=== PATIENT | male | born 1980 | race African-American/Black ===

== ENCOUNTER 2019-04-22 13:28 | Inpatient (IN) | payer OTHER ==
[2019-04-22 13:53] LABS: ADD MAN DIFF? NO
[2019-04-22 13:55] LABS: HEMOGLOBIN 13.3 g/dl (14.0-18.0); MEAN CORPUSCULAR HEMOGLOBIN 27.2 pg (29.0-33.0); MEAN CORPUSCULAR HGB CONC 32.4 g/dl (32.0-37.0); MEAN CORPUSCULAR VOLUME 83.8 fl (82.0-101.0); RED BLOOD COUNT 4.89 10^6/ul (4.70-6.10); RED CELL DISTRIBUTION WIDTH 13.5 % (11.5-14.5)
[2019-04-22 13:55] LABS: WHITE BLOOD COUNT 4.9 10^3/ul (4.8-10.8)
[2019-04-22 13:56] LABS: BASOPHILS % 0.4 % (0.0-2.0); EOSINOPHILS # 0.1 10^3/ul (0.0-0.5); EOSINOPHILS % 1.8 % (0.0-7.0); LYMPHOCYTES # 0.8 10^3/ul (0.8-2.9); LYMPHOCYTES % 16.8 % (15.0-51.0); MONOCYTE # 0.3 10^3/ul (0.3-0.9); MONOCYTES % 6.6 % (0.0-11.0); NEUTROPHIL # 3.6 10^3/ul (1.6-7.5); NEUTROPHILS % 74.2 % (39.0-77.0); PLATELET COUNT 238 10^3/UL (140-415)
[2019-04-22 14:13] LABS: ALANINE AMINOTRANSFERASE 23 IU/L (13-69); ALBUMIN 4.1 g/dl (3.3-4.9); ALBUMIN/GLOBULIN RATIO 1.28; ALKALINE PHOSPHATASE 69 IU/L (42-121); ANION GAP 8 (5-13); ASPARTATE AMINO TRANSFERASE 18 IU/L (15-46); BILIRUBIN,INDIRECT 0.4 mg/dl (0-1.1); BILIRUBIN,TOTAL 0.4 mg/dl (0.2-1.3); BLOOD UREA NITROGEN 11 mg/dl (7-20); CALCIUM 9.8 mg/dl (8.4-10.2); CARBON DIOXIDE 28 mmol/L (21-31); CHLORIDE 103 mmol/L (97-110); CREATININE 0.74 mg/dl (0.61-1.24); Estimated GFR > 60 mL/min (>60); GLUCOSE 108 mg/dl (70-220); LIPASE 54 U/L (23-300); POTASSIUM 4.1 mmol/L (3.5-5.1); SODIUM 139 mmol/L (135-144); TOTAL PROTEIN 7.3 g/dl (6.1-8.1)
[2019-04-22] MEDS: HALOPERIDOL 5 MG INJ IV (14:19)
[2019-04-22] MEDS: ONDANSETRON 4 MG INJ IV (14:22)
[2019-04-22] MEDS: SOD CHLORIDE 0.9% 1,000 ML IV ×2 (14:23→15:40)
[2019-04-22] MEDS: DICYCLOMINE 20 MG INJ IM (14:25)
[2019-04-22] MEDS: BELLADONNA/PHENOBARBITAL TAB PO (15:17)
[2019-04-22] MEDS: FAMOTIDINE 20 MG TAB PO (15:18)
[2019-04-22] MEDS: LIDOCAINE/MYLANTA 40 ML BTL PO (15:18)
[2019-04-22] MEDS: HYDROmorphONE 2 MG/ML SYG IV (15:39)
[2019-04-22] MEDS: LORAZEPAM 2 MG INJ IV (15:40)
[2019-04-22] MEDS: CAPSAICIN 0.025% 60 GM CR TOP (16:30)
[2019-04-22] MEDS ORDERED: ONDANSETRON 4 MG INJ IV (17:30)
[2019-04-22] MEDS ORDERED: ACETAMINOPHEN 325 MG TAB PO (17:30)
[2019-04-22] MEDS ORDERED: NACL 0.9% 3 ML SYG IV (17:30)
[2019-04-22 18:18] LABS: ETHANOL < 10.0 mg/dl (0-0)
[2019-04-23] MEDS: PANTOPRAZOLE (EC) 40 MG TAB PO (05:13)
[2019-04-23 06:07] LABS: ADD MAN DIFF? NO
[2019-04-23 06:17] LABS: WHITE BLOOD COUNT 5.4 10^3/ul (4.8-10.8)
[2019-04-23 06:17] LABS: BASOPHILS % 0.4 % (0.0-2.0); EOSINOPHILS # 0.1 10^3/ul (0.0-0.5); EOSINOPHILS % 1.5 % (0.0-7.0); HEMATOCRIT 38.5 % (42.0-52.0); HEMOGLOBIN 12.5 g/dl (14.0-18.0); LYMPHOCYTES # 1.2 10^3/ul (0.8-2.9); LYMPHOCYTES % 22.7 % (15.0-51.0); MEAN CORPUSCULAR HEMOGLOBIN 27.5 pg (29.0-33.0); MEAN CORPUSCULAR HGB CONC 32.5 g/dl (32.0-37.0); MEAN CORPUSCULAR VOLUME 84.6 fl (82.0-101.0); MEAN PLATELET VOLUME 10.6 fl (7.4-10.4); MONOCYTE # 0.6 10^3/ul (0.3-0.9); MONOCYTES % 11.6 % (0.0-11.0); NEUTROPHIL # 3.4 10^3/ul (1.6-7.5); NEUTROPHILS % 63.6 % (39.0-77.0); PLATELET COUNT 234 10^3/UL (140-415); RED BLOOD COUNT 4.55 10^6/ul (4.70-6.10); RED CELL DISTRIBUTION WIDTH 13.8 % (11.5-14.5)
[2019-04-23 06:40] LABS: ALANINE AMINOTRANSFERASE 22 IU/L (13-69); ALBUMIN 3.3 g/dl (3.3-4.9); ALBUMIN/GLOBULIN RATIO 1.22; ALKALINE PHOSPHATASE 59 IU/L (42-121); ANION GAP 5 (5-13); ASPARTATE AMINO TRANSFERASE 22 IU/L (15-46); BILIRUBIN,INDIRECT 0.7 mg/dl (0-1.1); BILIRUBIN,TOTAL 0.7 mg/dl (0.2-1.3); BLOOD UREA NITROGEN 12 mg/dl (7-20); CALCIUM 9.1 mg/dl (8.4-10.2); CARBON DIOXIDE 27 mmol/L (21-31); CHLORIDE 106 mmol/L (97-110); CREATININE 0.75 mg/dl (0.61-1.24); Estimated GFR > 60 mL/min (>60); GLUCOSE 90 mg/dl (70-220); MAGNESIUM 1.9 mg/dl (1.7-2.5); POTASSIUM 4.1 mmol/L (3.5-5.1); SODIUM 138 mmol/L (135-144)
[2019-04-23 07:02] LABS: THYROID STIMULATING HORMONE 0.516 MIU/L (0.465-4.680)
[2019-04-23 07:43] LABS: HEMOGLOBIN A1C 5.4 % (0-5.9)
[2019-04-23 11:06] LABS: AMPHETAMINE/METHAMPHETAMINE Negative (NEGATIVE); BARBITURATES Positive (NEGATIVE); BENZODIAZEPINES Negative (NEGATIVE); CANNABINOIDS Positive (NEGATIVE); COCAINE Positive (NEGATIVE); OPIATES Negative (NEGATIVE)
[2019-04-23] MEDS: LORAZEPAM 2 MG INJ IV (15:28)
[2019-04-23] MEDS: AL HYDROX/MG HYDROX/SIMETH 30 ML CUP PO (15:29)
[2019-04-23 20:02] LABS: AMPHETAMINE/METHAMPHETAMINE Negative (NEGATIVE); BARBITURATES Positive (NEGATIVE); BENZODIAZEPINES Negative (NEGATIVE); CANNABINOIDS Positive (NEGATIVE); COCAINE Positive (NEGATIVE); OPIATES Negative (NEGATIVE)
[2019-04-24] MEDS: PANTOPRAZOLE (EC) 40 MG TAB PO (06:14)
[2019-04-24] MEDS: AL HYDROX/MG HYDROX/SIMETH 30 ML CUP PO ×2 (10:47→17:46)
[2019-04-25] MEDS: PANTOPRAZOLE (EC) 40 MG TAB PO (06:05)
[2019-04-25] MEDS: ONDANSETRON 4 MG INJ IV ×2 (08:53→14:58)
[2019-04-25] MEDS: ACETAMINOPHEN 325 MG TAB PO ×2 (08:55→15:17)
[2019-04-25] MEDS: SERTRALINE 50 MG TAB PO (10:10)
[2019-04-25] MEDS: DOCUSATE SODIUM 100 MG CAP PO ×2 (12:16→20:17)
[2019-04-25] MEDS: LORAZEPAM 2 MG INJ IV (12:16)
[2019-04-25] MEDS ORDERED: ONDANSETRON 4 MG INJ IV (19:30)
[2019-04-25] MEDS: KETOROLAC 30 MG INJ IV (20:16)
[2019-04-25] MEDS: AL HYDROX/MG HYDROX/SIMETH 30 ML CUP PO (20:17)
[2019-04-25] MEDS: ONDANSETRON INJ 8 MG in SOD CHLORIDE 0.9% 50 ML IV (20:47)
[2019-04-25] MEDS: HYDROCODONE/APAP (5/325) TAB PO (21:44)
[2019-04-26] MEDS: PANTOPRAZOLE (EC) 40 MG TAB PO (05:13)
[2019-04-26 05:41] LABS: ADD MAN DIFF? NO
[2019-04-26 05:49] LABS: BASOPHILS % 0.4 % (0.0-2.0); EOSINOPHILS % 0.4 % (0.0-7.0); HEMATOCRIT 42.5 % (42.0-52.0); HEMOGLOBIN 13.9 g/dl (14.0-18.0); LYMPHOCYTES % 20.2 % (15.0-51.0); MEAN CORPUSCULAR HEMOGLOBIN 27.1 pg (29.0-33.0); MEAN CORPUSCULAR HGB CONC 32.7 g/dl (32.0-37.0); MEAN CORPUSCULAR VOLUME 82.8 fl (82.0-101.0); MEAN PLATELET VOLUME 10.3 fl (7.4-10.4); MONOCYTE # 0.9 10^3/ul (0.3-0.9); MONOCYTES % 18.4 % (0.0-11.0); NEUTROPHIL # 3.1 10^3/ul (1.6-7.5); NEUTROPHILS % 60.4 % (39.0-77.0); PLATELET COUNT 254 10^3/UL (140-415); RED BLOOD COUNT 5.13 10^6/ul (4.70-6.10); RED CELL DISTRIBUTION WIDTH 13.2 % (11.5-14.5)
[2019-04-26 05:49] LABS: WHITE BLOOD COUNT 5.1 10^3/ul (4.8-10.8)
[2019-04-26 06:05] LABS: ALANINE AMINOTRANSFERASE 23 IU/L (13-69); ALBUMIN 4.5 g/dl (3.3-4.9); ALKALINE PHOSPHATASE 65 IU/L (42-121); ANION GAP 8 (5-13); ASPARTATE AMINO TRANSFERASE 18 IU/L (15-46); BILIRUBIN,INDIRECT 0.6 mg/dl (0-1.1); BILIRUBIN,TOTAL 0.6 mg/dl (0.2-1.3); BLOOD UREA NITROGEN 14 mg/dl (7-20); CARBON DIOXIDE 30 mmol/L (21-31); CHLORIDE 98 mmol/L (97-110); CREATININE 0.92 mg/dl (0.61-1.24); Estimated GFR > 60 mL/min (>60); GLUCOSE 114 mg/dl (70-220); POTASSIUM 4.7 mmol/L (3.5-5.1); SODIUM 136 mmol/L (135-144); TOTAL PROTEIN 7.7 g/dl (6.1-8.1)
[2019-04-26 06:12] LABS: MAGNESIUM 2.1 mg/dl (1.7-2.5)
[2019-04-26 06:12] LABS: PHOSPHORUS 4.4 mg/dl (2.5-4.9)
[2019-04-26] MEDS: ACETAMINOPHEN 325 MG TAB PO (06:48)
[2019-04-26] MEDS: SERTRALINE 50 MG TAB PO (08:26)
[2019-04-26] MEDS: DOCUSATE SODIUM 100 MG CAP PO ×2 (08:26→20:46)
[2019-04-26] MEDS: METOCLOPRAMIDE 10 MG INJ IV (08:26)
[2019-04-27] MEDS: PANTOPRAZOLE (EC) 40 MG TAB PO (06:35)
[2019-04-27] MEDS: SERTRALINE 50 MG TAB PO (08:54)
[2019-04-27] MEDS: DOCUSATE SODIUM 100 MG CAP PO ×2 (08:54→21:21)
[2019-04-27] MEDS: ONDANSETRON INJ 8 MG in SOD CHLORIDE 0.9% 50 ML IV (11:04)
[2019-04-27] MEDS: ACETAMINOPHEN 325 MG TAB PO (12:44)
[2019-04-27] MEDS ORDERED: TRIMETHOBENZAMIDE 100 MG/ML VIAL IM (15:00)
[2019-04-28] MEDS: PANTOPRAZOLE (EC) 40 MG TAB PO (05:33)
[2019-04-28] MEDS: SERTRALINE 50 MG TAB PO (08:10)
[2019-04-28] MEDS: DOCUSATE SODIUM 100 MG CAP PO (08:10)
== END 2019-04-28 15:30 | DRG 881 ==
LOC: E/R 13:28 → MS3 17:25
DX: F32.9 Major depressive disorder, single episode, unspecified (principal); R11.2 Nausea with vomiting, unspecified; F17.200 Nicotine dependence, unspecified, uncomplicated; F43.10 Post-traumatic stress disorder, unspecified; R10.13 Epigastric pain; F15.90 Other stimulant use, unspecified, uncomplicated; F14.90 Cocaine use, unspecified, uncomplicated; F13.90 Sedative, hypnotic, or anxiolytic use, unspecified, uncomplicated; F45.8 Other somatoform disorders
CPT/HCPCS: 36415; 74176; 80053; 80307; 83036; 83690; 83735; 84100; 84443; 85025; 96361; 96372; 96374; 96375; 99217; 99285-25